=== PATIENT | male | born 1935 | race Caucasian/White ===

== ENCOUNTER 2016-11-24 16:33 | Inpatient (IN) | payer MEDICARE, OTHER ==
--- NOTE | ~2016-11-24 | HP ---
History And Physical [facility] [id number] [place]. [address] NAME: BURTON FERNANDEZ JR : 33 STATUS : ADM IN PAT#: [id number] AGE: 81 ADM/REG DATE : 11/24/16 MR#: [id number] REPORT SERV DATE: 11/25/16 DICTATED BY: TERESA ALLEN DATE: 11/24/16 REPORT STATUS : Draft TRANSCRIBED BY: MODL DATE: 11/24/16 DATE OF ADMISSION: 11/24/2016 CHIEF COMPLAINT: An 81-year-old male with known critical aortic stenosis with estimated area of 0.2 cm, now presenting with chest pain, shortness of breath, and lightheadedness. HISTORY OF PRESENT ILLNESS: The patient's history was obtained through careful interview with the patient and , coupled with review of [facility] and [facility] medical records. The patient has been followed by Dr. Aries Nick for aortic stenosis. Reviewing an echocardiogram from 11/16/2016, it apparently showed an estimated aortic valve area of 0.2 cm, but with an ejection fraction 55%. Over the last "couple of days" the patient has had progressive shortness of breath characterized by debilitating dyspnea on exertion, stating "now I can not do anything." He states sometimes he will be able to work at activity for maybe 5 minutes listlessly, but then he has to sit for 15 to 20 minutes just to catch his breath. He has had no cough, no orthopnea, no paroxysmal nocturnal dyspnea. For four days, he has had new onset lightheadedness that comes and goes. He also describes a chest discomfort new onset just this morning. He has had the episode two times, felt at the bottom of his chest, left side greater than the right. A sharp quality at times, 3/10 severity. He was not doing any particular activity on the onset of this chest pain. He has had two episodes of nausea, but no vomiting. He has chronic abdominal hernia, but no abdominal pain or symptoms now. He has chronic lymphedema. No diarrhea. He claims his diabetes is under good control. REVIEW OF SYSTEMS: Otherwise, a 14-point review of systems was obtained and was negative. PAST MEDICAL HISTORY: 1. Aortic stenosis. Followed by Dr. Aries Nick. 2. Coronary artery disease, status post stent placement. 3. COPD. 4. Right bundle-branch block. 5. Lymphedema, right greater than left. 6. DVT/pulmonary embolism in 2015 after back surgery on chronic Eliquis. 7. Prostate cancer, first diagnosed in 1998 with radical prostatectomy, but then with recurrence in 2002, 2006, and 2011, each time he has had radiation therapy under the care of Dr. Dean, and has also been placed on Lupron. He states that his most recent PSA was less than 1. History And Physical [address] [address] NAME: BURTON FERNANDEZ JR : 33 STATUS : ADM IN PAT#: [id number] AGE: 81 ADM/REG DATE : 11/24/16 MR#: [id number] REPORT SERV DATE: 11/25/16 DICTATED BY: TERESA ALLEN DATE: 11/24/16 REPORT STATUS : Draft TRANSCRIBED BY: LILIA DATE: 11/24/16 8. Diabetes. 9. Neuropathy. 10.Gout. 11.Osteomyelitis with toe amputation in July 2016. 12.Restless legs syndrome. 13.Peripheral arterial disease with known occluded left posterior tibial artery. 14.Rheumatic fever as a child. PAST SURGICAL HISTORY: 1. Prostatectomy. 2. Appendectomy. 3. Right hip surgery. 4. Back surgery x2. 5. Toe amputation. ALLERGIES: NO KNOWN DRUG ALLERGIES. SOCIAL HISTORY: Quit smoking about 30 years ago. Drinks occasional social wine or beer. He has been twice and now is to his third . He has step children only, no biological children. 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 He served during the [place] War and [place] War, but did not see any active pitt. FAMILY HISTORY: Mother and father really unknown to him. He thinks his father of COPD. CURRENT MEDICATIONS: 1. Zytiga 1000 mg every day. 2. Tylenol with codeine as needed. 3. ProAir. 4. Allopurinol 300 mg p.o. daily. 5. Eliquis 2.5 mg p.o. b.i.d. 6. Aspirin 81 mg p.o. daily. 7. Lipitor 40 mg daily. 8. Calcium with vitamin D. 9. Flexeril 10 mg at bedtime. 10.Denosumab 120 mg subcutaneous every other month. 11.Iron supplement Tuesday, Tuesday, and Tuesday. 12.Neurontin 600 mg p.o. t.i.d. 13.Lisinopril 15 mg at bedtime. 14.Magnesium supplement. 15.Glucophage 500 mg at bedtime. 16.Lopressor 12.5 mg p.o. b.i.d. 17.Omeprazole 20 mg p.o. daily. 18.MiraLAX packet daily. 19.Prednisone 2.5 mg at bedtime, 5 mg in the morning. 20.Spiriva inhale daily. 21.Eye drops. 22.Stool softener. History And Physical [address] [place]. [address] NAME: BURTON FERNANDEZ : 33 STATUS : ADM IN [facility]#: [id number] AGE: 81 ADM/REG DATE : 11/24/16 MR#: [id number] REPORT SERV DATE: 11/25/16 DICTATED BY: TERESA ALLEN DATE: 11/24/16 REPORT STATUS : Draft TRANSCRIBED BY: LILIA DATE: 11/24/16 23.Lupron every six months. PHYSICAL EXAMINATION: VITAL SIGNS: Temperature 98.2, pulse 69, blood pressure 101/59, respiratory rate 16, and O2 saturation 95% on room air. GENERAL: A pleasant, cooperative male, in no evidence of distress at this time. No symptoms at this time. HEENT: Pupils equal, round, and reactive to light. No conjunctival pallor. No scleral icterus. Nares are patent. Oropharynx is clear of obstruction. Mildly dry mucous membranes. NECK: Trachea midline. No thyromegaly. LYMPH: No cervical lymphadenopathy. No supraclavicular lymphadenopathy. RESPIRATORY: Clear to auscultation at bases. No wheezes, rales, or rhonchi. Normal respiratory effort. CARDIOVASCULAR: Despite the patient's critical aortic stenosis I do not appreciate a murmur. He has a regular rate and rhythm. No rubs or gallops. The patient has chronic appearing lower extremity edema that is symmetrical. ABDOMEN: Soft, nontender, and nondistended. Normal bowel sounds auscultated throughout. No hepatosplenomegaly. DERMATOLOGICAL: Warm and dry extremities. No pallor. No cyanosis. PSYCHIATRIC: Normal affect. Good mood. Alert and oriented x3. LABORATORY DATA: White blood cell count 6.8, hemoglobin 12, hematocrit 39, and platelets 247. Sodium 141, potassium 4.6, chloride 106, bicarb 28, BUN 26, creatinine 1.58, and glucose 142. Troponin negative. Brain natriuretic peptide 40. INR 1.1. Last PSA was reported as less than 1. STUDIES: 1. EKG by my own evaluation shows sinus rhythm, premature atrial complexes, right bundle- branch block. 2. Chest x-ray by my own evaluation shows no acute cardiopulmonary process. 3. Review of an echocardiogram on 11/16/2016 showed "severe" aortic stenosis with an estimated aortic valve area of 0.2 cm2, ejection fraction 55%. ASSESSMENT AND PLAN: 1. Critical aortic stenosis, now symptomatic. Reviewed echocardiogram from 11/16/2016. Consult Dr. Nick, die cast engineer. 2. History of pulmonary embolism, on Eliquis. 3. History of metastatic prostate cancer, in remission since 2011 with last PSA less than 1. History of use of Lupron, prostatectomy radiation. 4. Chronic obstructive pulmonary disease. Place on Duo nebulizers. 5. Coronary artery disease, history of stent placement. History And Physical [address] [address] NAME: BURTON FERNANDEZ JR : 33 STATUS : ADM IN [facility]#: [id number] AGE: 81 ADM/REG DATE : 11/24/16 MR#: [id number] REPORT SERV DATE: 11/25/16 DICTATED BY: TERESA ALLEN DATE: 11/24/16 REPORT STATUS : Draft TRANSCRIBED BY: MODLynn DATE: 11/24/16 [facility]/LILIA Teresa Allen M.D. / [id number] CC: MD Jack Cervantes M.D. Gordon Graham, M.D.
--- NOTE | ~2016-11-24 | DS ---
Discharge Summary [facility] [address] [place]. [address] NAME: BURTON FERNANDEZ JR : 33 STATUS : DIS IN PAT#: [id number] AGE: 81 ADM/REG DATE : 11/24/16 MR#: [id number] REPORT SERV DATE: 11/27/16 DICTATED BY: ANAYELI VAIL DATE: 11/27/16 REPORT STATUS : Draft TRANSCRIBED BY: LILIA DATE: 11/27/16 ADMISSION DATE: 11/24/2016 DISCHARGE DATE: 11/27/2016 DIAGNOSES: 1. Severe aortic stenoses with symptomatology. 2. History of coronary artery disease with recent stent. 3. Hypertension. 4. Type 2 diabetes. 5. Chronic lymphedema. 6. History of COPD. FOLLOWUP: 1. The patient is to follow up with Cardiology in their clinic for continued workup for TAVR outpatient. 2. The patient is to follow up with the primary care physician in one to two weeks. 3. The patient has a scheduled cardiology followup on 12/02/2016, at 10 a.m. with Cardiology for TAVR workup and also have an appointment at the [facility] on 12/09/2016, at 9 a.m. CONSULTANTS: Cardiology Dr. Rico. DISCHARGE MEDICATIONS: 1. Allopurinol 300 mg p.o. daily. 2. Aspirin 81 mg p.o. daily. 3. Tylenol with Codeine at bedtime p.r.n. per home dose. 4. Lipitor 40 mg p.o. at bedtime. 5. Flexeril 10 mg p.o. bedtime per home dose. 6. Caltrate plus D 600 mg p.o. daily. 7. Cholecalciferol 2000 units p.o. daily. 8. Ferrous sulfate 325 mg p.o. daily Tuesday, Tuesday, and Tuesday per home dose. 9. Neurontin 600 mg p.o. t.i.d. 10.Magnesium oxide 400 mg p.o. daily. 11.Bactroban appointment topically at bedtime. 12.Metoprolol tartrate 12.5 mg p.o. b.i.d. 13.Prilosec 20 mg p.o. at bedtime. 14.Prednisone 5 mg p.o. q.a.m. and 2.5 mg p.o. at bedtime per the maintenance dose. 15.Zytiga 1000 mg p.o. q.a.m. 16.Eliquis 2.5 mg p.o. b.i.d. 17.ProAir 2 puffs inhaled daily p.r.n. 18.Spiriva one cap inhaled q.a.m. 19.Metformin 500 mg p.o. at bedtime. 20.Travatan 0.004% ophthalmic drops at bedtime. 21.Lisinopril 15 mg p.o. at bedtime. 22.MiraLAX 17 g p.o. daily p.r.n. 23.Denosumab subcu q.8 weeks. Follow up with prescriber. Discharge Summary [address] [place]. [address] NAME: BURTON FERNANDEZ JR : 33 STATUS : DIS IN PAT#: [id number] AGE: 81 ADM/REG DATE : 11/24/16 MR#: [id number] REPORT SERV DATE: 11/27/16 DICTATED BY: ANAYELI VAIL DATE: 11/27/16 REPORT STATUS : Draft TRANSCRIBED BY: LILIA DATE: 11/27/16 24.Lupron IM q.6 months. Follow up with prescriber. PROCEDURES: Cardiac cath by Dr. Roberto Iniguez, showing no significant pulmonary hypertension; clinical severe aortic stenoses. Patent stent in proximal to mid left circumflex. No flow limited coronary artery disease. Left ventriculogram not performed due to CKD. With recommendation of outpatient referral to [facility] for consideration for TAVR. Ongoing medical management and risk factor modification. IMAGING: Echocardiogram with ejection fraction of 55% with dilated left atrium with mild diastolic dysfunction. Severe aortic stenosis, low gradient and mild aortic valve regurgitation. HOSPITAL COURSE: Please see H and P dictated by Dr. Tyree Mcdowell. This is an 81-year-old male with a past medical history of severe aortic stenosis with coronary artery disease and a history of prostate cancer being followed by a specialist as an outpatient, presented with worsening dyspnea on exertion and occasional lightheadedness with standing and the patient was admitted to the Hospitalist Service for symptomatic severe aortic stenoses with a Cardiology consultation. The patient was seen by Dr. Rico and [facility] colleagues for which the patient had a cardiac cath as mentioned above with a referral to the [facility] Clinic for further outpatient evaluation/workup for TAVR in the future which was explained to the patient as well as his . Also the patient was educated on ADA diet and AH diet and the importance of maintaining low-salt diet. The patient did not have any COPD exacerbation during his hospital course. The concerns were his symptomatology was more so secondary to his aortic stenoses. The patient's symptoms did have improvement by the time he was discharged as recommended by Cardiology for the patient to complete his TAVR workup as an outpatient for which the patient and were in agreement. The patient is to be discharged to home and to follow up as an outpatient. DICTATED BY: Delta HooksH/LILIA Anayeli Vail M.D. / [id number] CC: Delta Hooks M.D. Gordon Graham, M.D.
--- NOTE | ~2016-11-24 | CN ---
Consultation Report [facility] [address] [place]. [address] NAME: BURTON FERNANDEZ JR : 33 STATUS : ADM IN PAT#: [id number] AGE: 81 ADM/REG DATE : 11/24/16 MR#: [id number] REPORT SERV DATE: 11/25/16 DICTATED BY: ATUL ARIZA JR. DATE: 11/25/16 REPORT STATUS : Draft TRANSCRIBED BY: MODL DATE: 11/25/16 CARDIOLOGY CONSULT DATE OF CONSULTATION: 11/25/2016 [facility] AUDITOR: Dr. Aries Nick. REASON FOR CONSULTATION: Regarding aortic stenosis progression. HISTORY OF PRESENT ILLNESS: An 81-year-old white male, followed by Dr. Nick for aortic stenosis. Within the past week or two, he has been significantly more short of breath with minimal activity and at rest and has had unusual fatigue. No exertional dizziness or near- syncope. No exertional chest pain. He did have some chest discomfort, relieved with belching and antacids recently. EKG shows no acute change. Troponin normal on two determinations. BNP normal at 40. Past history of aortic stenosis, left circumflex stent, bare-metal stent in 2010, COPD, right bundle branch block, history of the DVT, venous insufficiency of left lower extremity, chronic Eliquis anticoagulation, history of prostate cancer with unremarkable PSA recently. Last fall, his mean aortic valve gradient was 22 mmHg with a valve area of 0.96. The echocardiogram read by Dr. Teague recently, 11/16/2016, showed a valve area dropped to 0.6 with a mean gradient 25 and dimensionless index of 0.2. The valve appeared to be stenotic with significant reduction in opening on visual inspection. Ejection fraction preserved at 55%, left atrial enlargement. ALLERGIES: NO CONTRAST ALLERGY. NO KNOWN MEDICINE ALLERGIES. MEDICATIONS: Home medication list reviewed. SOCIAL HISTORY: . Supportive family. No illicit drugs. FAMILY HISTORY: Noncontributory. PHYSICAL EXAMINATION: VITAL SIGNS: BLOOD PRESSURE 125/61. PULSE is 85 and regular. Room air SATURATION 100%. RESPIRATIONS 18. Afebrile. HEENT: No xanthelasma. NECK: Reduction in amplitude of carotid pulses. Soft bruit. LUNGS: Clear to auscultation and percussion. COR: Heart tones are diminished. Systolic ejection murmur at base. No diastolic murmur is appreciated. Aortic component to 2nd heart sound is reduced. ABD: Soft, nontender, no hepatosplenomegaly, no mass. EXT: Compression stocking, left lower extremity. No significant edema. Consultation Report [facility] [address] [place]. [address] NAME: BURTON FERNANDEZ JR : 33 STATUS : ADM IN PAT#: [id number] AGE: 81 ADM/REG DATE : 11/24/16 MR#: [id number] REPORT SERV DATE: 11/25/16 DICTATED BY: ATUL ARIZA JR. DATE: 11/25/16 REPORT STATUS : Draft TRANSCRIBED BY: TAMIKOL DATE: 11/25/16 MS: Back without spine or costovertebral angle tenderness. NEURO: Symmetric findings. DISCUSSION: Symptomatic aortic stenosis with progressive stenosis on echocardiogram 11/16/2016. There is no evidence of recurrent angina and troponins have been negative on two occasions. Plan to hold Eliquis and proceed with right and left heart catheterization, possible PCI tomorrow. Consider TAVR. Group to follow in my absence. Thank you for this consultation. /LILIA Atul Ariza Jr., M.D. / [id number] CC: Delta Hooks M.D.
[~2016-11-24 16:33] MED LIST: ASAB PO; BEN25 PO; BENICAR20 PO; CALCIUM; CALTRA600D PO; CALTRAT600 PO; CEFAZ1 IV; DIOV80 PO; DURICEF PO; ELIQUIS 2.5 MG2.5 MG PO; ELIQUIS 5 MG TAB5 MG PO; FERROUS SULF325 M1 PO; FISH OIL1200 MG PO; FLEX PO; FLEXERIL5 MG PO; FORTAMET500 MG PO; GRALISE600 MG PO; LEXAPRO5 MG PO; LIPITOR10 PO; LIPITOR40 PO; LOP25 PO; MAGNESIUM; MAGNESIUM PO; MELA3 PO; MIRAPEX250 PO; MYRBETRIQ50 MG PO; NEUR600 PO; P5 PO; PLAVIX PO; POTASSIUM95 MG PO; PRILO PO; PROAIR HFA INH; SPIRIVA INH; T3 PO; TRAVATAN OPH; TRAVATAN Z OPTH OPH; VICODINTAB PO; VITAMIN B-12; VITAMIN B-625 MG OR; VITAMIN C; VITAMIN D31000 UNIT PO; VYVANSE30 MG OR; Z300 PO; ZESTRIL5 MG PO; ZOCOR40 PO; ZYTIGA250 MG PO
[2016-11-24 17:07] LABS: INTERNATIONAL NORMAL RATI 1.1 UNITS (-); PARTIAL THROMBO TIME 27.3 SEC (22.5-37.2); PROTIME (NOT ORD) 14.4 SEC (12.0-14.5)
[2016-11-24 17:08] LABS: BASOPHILS 0.4 %; BASOPHILS ABSOLUTE 0.03 10/3/uL (0.0-0.16); EOSINOPHILS 1.5 %; HEMOGLOBIN 12.5 g/dL (13.6-17.8); IMMATURE GRANULOCYTES 0.3 %; IMMATURE GRANULOCYTES ABSOLUTE 0.02 10/3/uL (0.0-0.11); LYMPHOCYTES 16.1 %; MEAN CORPUS HGB CONC 32.1 g/dL (32.0-36.0); MEAN CORPUSCULAR HEMOGLOB 31.6 pg (26.0-34.0); MEAN PLATELET VOLUME 10.1 fL (9.2-13.0); MONOCYTES 5.9 %; NEUTROPHILS 75.8 %; NEUTROPHILS ABSOLUTE 5.18 10/3/uL (2.02-8.40); PLATELET COUNT 247 10/3/uL (150-400); RBC DISTRIBUTION WIDTH 15.2 % (12.0-16.0); RED CELL COUNT 3.95 10/6/uL (4.7-6.1); WHITE BLOOD CELLS 6.8 10/3/uL (4.5-10.5)
[2016-11-24 17:09] LABS: ER CBC TAT 0 Hrs 16 Mins; MANUAL DIFF NO %; MEAN CORPUSCULAR VOLUME 98.7 fL (80-100)
[2016-11-24 17:15] LABS: BUN (BLOOD UREA NITROGEN) 26 MG/DL (6-23); CALCIUM, SERUM 8.9 MG/DL (8.5-10.4); CHEST PAIN PROFILE TAT 0 Hrs 23 Mins; CHLORIDE, SERUM 106 MMOL/L (96-112); CO2 (CARBON DIOXIDE) 28 MMOL/L (24-34); CREATININE 1.58 MG/DL (0.70-1.30); GFR AFRICAN AMERICAN 46 ML/MIN (>=60); GFR NON AFRICAN AMERICAN 40 ML/MIN (>=60); GLUCOSE, SERUM 142 MG/DL (60-99); POTASSIUM, SERUM 4.6 MMOL/L (3.5-5.3); SODIUM, SERUM 141 MMOL/L (135-148); TROPONIN I <0.02 NG/ML (<0.05)
[2016-11-24] MEDS ORDERED: P5 PO (20:54)
[2016-11-24] MEDS ORDERED: ZYTIGA250 MG PO (20:54)
[2016-11-24] MEDS ORDERED: PREDNISONE2.5 MG PO (20:55)
[2016-11-24] MEDS ORDERED: T3 PO ×2 (20:57)
[2016-11-24] MEDS ORDERED: BACTROINT TOP (20:58)
[2016-11-24] MEDS ORDERED: LOP25 PO (20:59)
[2016-11-24] MEDS ORDERED: LIPITOR40 PO (20:59)
[2016-11-24] MEDS ORDERED: FERROUS SULF325 M1 PO (21:00)
[2016-11-24] MEDS ORDERED: PROAIR HFA INH (21:01)
[2016-11-24] MEDS ORDERED: ELIQUIS 2.5 MG2.5 MG PO (21:01)
[2016-11-24] MEDS ORDERED: SPIRIVA INH (21:02)
[2016-11-24] MEDS ORDERED: VITAMIN D31000 UNIT PO (21:02)
[2016-11-24] MEDS ORDERED: Z300 PO (21:02)
[2016-11-24] MEDS ORDERED: PRILO PO (21:03)
[2016-11-24] MEDS ORDERED: GLUCPH PO (21:03)
[2016-11-24] MEDS ORDERED: NEUR600 PO (21:03)
[2016-11-24] MEDS ORDERED: PRIN10 PO (21:04)
[2016-11-24] MEDS ORDERED: ASAB PO (21:04)
[2016-11-24] MEDS ORDERED: TRAVATAN Z 0.004% OPH (21:04)
[2016-11-24] MEDS ORDERED: FLEX PO (21:06)
[2016-11-24] MEDS ORDERED: CALTRA600D PO (21:06)
[2016-11-24] MEDS ORDERED: MIRALAX POWDER1 PKT PO (21:08)
[2016-11-24] MEDS ORDERED: STOOL SOFTENER OTC PO (21:09)
[2016-11-24] MEDS ORDERED: XGEVA120 MG/1.7 SC (21:10)
[2016-11-24] MEDS ORDERED: LUPRON IM (21:11)
[2016-11-24] MEDS ORDERED: MAGOX4 PO (21:16)
[2016-11-24] MEDS ORDERED: LIDO TOP (21:16)
[2016-11-24] MEDS ORDERED: [UNRECOGNIZED DRUG - OTHER] TOP (21:16)
[2016-11-25 06:51] LABS: BASOPHILS 0.3 %; BASOPHILS ABSOLUTE 0.02 10/3/uL (0.0-0.16); EOSINOPHILS 2.2 %; EOSINOPHILS ABSOLUTE 0.13 10/3/uL (0.0-0.53); HEMATOCRIT 36.6 % (40.0-51.0); HEMOGLOBIN 11.8 g/dL (13.6-17.8); IMMATURE GRANULOCYTES 0.3 %; IMMATURE GRANULOCYTES ABSOLUTE 0.02 10/3/uL (0.0-0.11); LYMPHOCYTES 19.9 %; MANUAL DIFF NO %; MEAN CORPUS HGB CONC 32.2 g/dL (32.0-36.0); MEAN CORPUSCULAR HEMOGLOB 31.5 pg (26.0-34.0); MEAN CORPUSCULAR VOLUME 97.6 fL (80-100); MEAN PLATELET VOLUME 9.8 fL (9.2-13.0); MONOCYTES 8.1 %; MONOCYTES ABSOLUTE 0.49 10/3/uL (0.21-1.20); NEUTROPHILS 69.2 %; NEUTROPHILS ABSOLUTE 4.16 10/3/uL (2.02-8.40); PLATELET COUNT 168 10/3/uL (150-400); RBC DISTRIBUTION WIDTH 14.8 % (12.0-16.0); RED CELL COUNT 3.75 10/6/uL (4.7-6.1)
[2016-11-25 06:57] LABS: INTERNATIONAL NORMAL RATI 1.1 UNITS (-); PARTIAL THROMBO TIME 26.8 SEC (22.5-37.2); PROTIME (NOT ORD) 14.2 SEC (12.0-14.5)
[2016-11-25 07:20] LABS: ALBUMIN 2.7 G/DL (3.5-5.0); ALKALINE PHOSPHATASE 67 U/L (45-117); BUN (BLOOD UREA NITROGEN) 25 MG/DL (6-23); CHLORIDE, SERUM 107 MMOL/L (96-112); CO2 (CARBON DIOXIDE) 27 MMOL/L (24-34); CREATININE 1.25 MG/DL (0.70-1.30); GFR AFRICAN AMERICAN 61 ML/MIN (>=60); GFR NON AFRICAN AMERICAN 53 ML/MIN (>=60); GLOBULIN 2.8 G/DL (2.5-4.1); GLUCOSE, SERUM 120 MG/DL (60-99); POTASSIUM, SERUM 4.2 MMOL/L (3.5-5.3); SGPT(ALT) 16 U/L (5-65); SODIUM, SERUM 141 MMOL/L (135-148); TOTAL BILIRUBIN 0.2 MG/DL (0-1.2); TOTAL PROTEIN 5.5 G/DL (6.0-8.5); TROPONIN I <0.02 NG/ML (<0.05)
[2016-11-25 07:21] LABS: CK-MB 1.1 NG/ML; CPK 60 U/L (0-200); SGOT(AST) 23 U/L (5-40)
[2016-11-26 06:01] LABS: BASOPHILS 0.2 %; BASOPHILS ABSOLUTE 0.01 10/3/uL (0.0-0.16); HEMOGLOBIN 11.4 g/dL (13.6-17.8); IMMATURE GRANULOCYTES 0.2 %; IMMATURE GRANULOCYTES ABSOLUTE 0.01 10/3/uL (0.0-0.11); LYMPHOCYTES 19.2 %; LYMPHOCYTES ABSOLUTE 0.97 10/3/uL (0.67-4.30); MEAN CORPUS HGB CONC 32.6 g/dL (32.0-36.0); MEAN CORPUSCULAR HEMOGLOB 31.9 pg (26.0-34.0); MEAN PLATELET VOLUME 9.9 fL (9.2-13.0); MONOCYTES 7.3 %; MONOCYTES ABSOLUTE 0.37 10/3/uL (0.21-1.20); NEUTROPHILS 71.1 %; PLATELET COUNT 178 10/3/uL (150-400); RBC DISTRIBUTION WIDTH 14.8 % (12.0-16.0); RED CELL COUNT 3.57 10/6/uL (4.7-6.1); WHITE BLOOD CELLS 5.1 10/3/uL (4.5-10.5)
[2016-11-26 06:05] LABS: MANUAL DIFF NO %
[2016-11-26 06:10] LABS: PROTIME (NOT ORD) 13.1 SEC (12.0-14.5)
[2016-11-26 06:15] LABS: ALBUMIN 2.6 G/DL (3.5-5.0); ALKALINE PHOSPHATASE 63 U/L (45-117); CALCIUM, SERUM 8.6 MG/DL (8.5-10.4); CHLORIDE, SERUM 109 MMOL/L (96-112); CO2 (CARBON DIOXIDE) 26 MMOL/L (24-34); CREATININE 1.18 MG/DL (0.70-1.30); GFR AFRICAN AMERICAN 66 ML/MIN (>=60); GFR NON AFRICAN AMERICAN 57 ML/MIN (>=60); GLUCOSE, SERUM 124 MG/DL (60-99); HDL CHOLESTEROL 40 MG/DL (> 39); POTASSIUM, SERUM 4.2 MMOL/L (3.5-5.3); SGOT(AST) 16 U/L (5-40); SGPT(ALT) 16 U/L (5-65); SODIUM, SERUM 144 MMOL/L (135-148); TOTAL BILIRUBIN 0.4 MG/DL (0-1.2); TOTAL PROTEIN 5.6 G/DL (6.0-8.5)
[2016-11-26 06:16] LABS: BUN (BLOOD UREA NITROGEN) 21 MG/DL (6-23); CHOL/HDL RATIO(NOT ORDER) 3.6 (0-5); CHOLESTEROL 143 MG/DL (< 200); DIRECT BILIRUBIN < 0.1 MG/DL (0.0-0.4); INDIRECT BILIRUBIN(NOT ORDER) 0.3 MG/DL (0.1-0.9); LDL CHOLESTEROL 68 MG/DL (< 130); NON-HDL CHOLESTEROL 103 MG/DL (< 160); TRIGLYCERIDE 176 MG/DL (< 150)
[2016-11-27 05:17] LABS: BASOPHILS 0.3 %; BASOPHILS ABSOLUTE 0.02 10/3/uL (0.0-0.16); EOSINOPHILS ABSOLUTE 0.14 10/3/uL (0.0-0.53); HEMATOCRIT 35.8 % (40.0-51.0); HEMOGLOBIN 11.2 g/dL (13.6-17.8); IMMATURE GRANULOCYTES 0.1 %; IMMATURE GRANULOCYTES ABSOLUTE 0.01 10/3/uL (0.0-0.11); LYMPHOCYTES 23.9 %; LYMPHOCYTES ABSOLUTE 1.64 10/3/uL (0.67-4.30); MEAN CORPUS HGB CONC 31.3 g/dL (32.0-36.0); MEAN CORPUSCULAR HEMOGLOB 30.9 pg (26.0-34.0); MEAN CORPUSCULAR VOLUME 98.9 fL (80-100); MONOCYTES 5.8 %; NEUTROPHILS 67.9 %; NEUTROPHILS ABSOLUTE 4.64 10/3/uL (2.02-8.40); PLATELET COUNT 195 10/3/uL (150-400); RBC DISTRIBUTION WIDTH 15.1 % (12.0-16.0); RED CELL COUNT 3.62 10/6/uL (4.7-6.1); WHITE BLOOD CELLS 6.9 10/3/uL (4.5-10.5)
[2016-11-27 05:18] LABS: MANUAL DIFF NO %
[2016-11-27 05:36] LABS: BUN (BLOOD UREA NITROGEN) 21 MG/DL (6-23); CALCIUM, SERUM 8.6 MG/DL (8.5-10.4); CHLORIDE, SERUM 110 MMOL/L (96-112); CO2 (CARBON DIOXIDE) 26 MMOL/L (24-34); CREATININE 1.18 MG/DL (0.70-1.30); GFR AFRICAN AMERICAN 66 ML/MIN (>=60); GFR NON AFRICAN AMERICAN 57 ML/MIN (>=60); GLUCOSE, SERUM 125 MG/DL (60-99); POTASSIUM, SERUM 4.3 MMOL/L (3.5-5.3); SODIUM, SERUM 143 MMOL/L (135-148)
== END 2016-11-27 12:33 | disposition home or self-care (01) | DRG 286 ==
LOC: ER 16:33 → 7NO 21:43
PROVIDERS: Emergency Medicine; Hospitalist; Internal Medicine; Obstetrics & Gynecology
PROC: 4A023N8 Measurement of Cardiac Sampling and Pressure, Bilateral, Percutaneous Approach (ICD-10-PCS; principal; 2016-11-26)
PROC: B2111ZZ Fluoroscopy of Multiple Coronary Arteries using Low Osmolar Contrast (ICD-10-PCS; 2016-11-26)
DX: I35.0 Nonrheumatic aortic (valve) stenosis (principal); I50.33 Acute on chronic diastolic (congestive) heart failure; C79.9 Secondary malignant neoplasm of unspecified site; E11.22 Type 2 diabetes mellitus with diabetic chronic kidney disease; E11.40 Type 2 diabetes mellitus with diabetic neuropathy, unspecified; I13.0 Hypertensive heart and chronic kidney disease with heart failure and stage 1 through stage 4 chronic kidney disease, or unspecified chronic kidney disease; C61 Malignant neoplasm of prostate; I25.10 Atherosclerotic heart disease of native coronary artery without angina pectoris; I45.10 Unspecified right bundle-branch block; N18.9 Chronic kidney disease, unspecified; I89.0 Lymphedema, not elsewhere classified; J44.9 Chronic obstructive pulmonary disease, unspecified; Z95.5 Presence of coronary angioplasty implant and graft; Z86.711 Personal history of pulmonary embolism; Z79.02 Long term (current) use of antithrombotics/antiplatelets; Z79.82 Long term (current) use of aspirin; Z92.3 Personal history of irradiation; Z86.718 Personal history of other venous thrombosis and embolism
CPT/HCPCS: 71010; 71020; 80048; 80053; 80061; 80076; 82550; 82553; 82803; 82962; 83735; 83880; 84443; 84484; 85025; 85610; 85730; 93005; 93460; 93880; 94640; 99152; 99153; 99285; A9270-GY; C1751; C1769; C1894; J2250; J3010; Q9967